=== PATIENT | female | born 1985 | race Two or more races ===

== ENCOUNTER 2022-09-14 06:00 | Day surgery (SDC) | payer OTHER | END 2022-09-14 09:25 | disposition home or self-care (01) | LOC: AMB-ENDOS 06:00 → CIR.AMB 13:45 | PROVIDERS: ATTEND Surgery | DX: R10.13 Epigastric pain (principal); E66.09 Other obesity due to excess calories; K31.7 Polyp of stomach and duodenum; Z20.822 Contact with and (suspected) exposure to COVID-19 ==